=== PATIENT | female | born 1985 | race African-American/Black ===

== ENCOUNTER 2017-10-05 02:50 | Inpatient (IN) | payer SELFPAY ==
[2017-10-05] VITALS (12 sets, daily range): BP systolic 102–139; BP diastolic 56–85; PULSE 65–95; RESP 14–20; TEMP 97.2–98; O2SAT 92–100
[~2017-10-05] VITALS: Ht 170.2 cm; Wt 55.0 kg
[2017-10-05] MEDS ORDERED: SODIUM CHLORIDE 0.9% FLUSH 10 ML FLUSH IVF PRN (03:00)
[2017-10-05] MEDS ORDERED: SODIUM CHLOR 0.9% 1000 ML INJ 1,000 ML IV ONE (03:00)
[2017-10-05] MEDS ORDERED: IBUP200C PO (03:03)
[2017-10-05] MEDS ORDERED: DILA100C PO (03:16)
[2017-10-05] MEDS ORDERED: HYDR-3111 PO (03:16)
[2017-10-05 03:28] LABS: HEMATOCRIT 23.8 % (35.0-46.0); HEMOGLOBIN 7.1 GM/DL (11.6-15.3); MEAN CELL VOLUME 60.5 FL (80.0-100.0); MEAN PLATELET VOLUME 8.5 FL (7.0-11.0); PLATELET COUNT 284 TH/MM3 (150-450); RED BLOOD COUNT 3.93 MIL/MM3 (4.00-5.30); RED CELL DISTRIBUTION WIDTH 24.9 % (11.6-17.2); RETIC # 51.1 MIL/L (20.0-150.0); RETIC % 1.3 % (0.4-3.0); WHITE BLOOD COUNT 4.8 TH/MM3 (4.0-11.0)
[2017-10-05 03:30] LABS: MEAN CORPUSCULAR HGB CONC 29.7 % (32.0-36.0)
[2017-10-05 03:40] LABS: ALBUMIN 4.1 GM/DL (3.4-5.0); ALT (GPT) 16 U/L (10-53); AST (GOT) 17 U/L (15-37); BICARBONATE 22.6 MEQ/L (21.0-32.0); BLOOD UREA NITROGEN 10 MG/DL (7-18); C-REACTIVE PROTEIN LESS THAN 0.29 MG/DL (0.00-0.30); CALCIUM 8.7 MG/DL (8.5-10.1); CHLORIDE 108 MEQ/L (98-107); CREATININE 0.72 MG/DL (0.50-1.00); GLOMERULAR FILTRATION RATE 93 ML/MIN (>89); GLUCOSE,RANDOM 82 MG/DL (74-106); SODIUM (NA) 140 MEQ/L (136-145)
--- NOTE | 2017-10-05 03:41 | PD ---
HPI Chief Complaint: Sickle Cell Time Seen by Provider: 02:59 Travel History International Travel<30 days: No Contact w/Intl Traveler<30days: No Traveled to known affect area: No History of Present Illness HPI The patient is a 32 year old female who presents to the [facility] emergency department with a history of sickle cell pain crisis that she reports began a week ago. She reports that she has pain in bilateral legs and her low back. The patient additionally also reports having a heavier than usual. This started yesterday. She reports that she has been passing large blood clots. She reports that she has a history of sickle cell anemia. She usually requires a blood transfusion when her hemoglobin is less than 7. She reports that she is visiting from [place]. She reports that she has had nausea with occasional vomiting during the symptoms over the last week. She reports that the emesis has consisted of stomach acid. On review of systems otherwise she denies having any recent fevers. She reports that she is currently improving after a cold. She describes the cold symptoms as having a fever, generalized malaise, dry cough. She denies having any neck pain, chest pain, shortness of breath, abdominal pain, diarrhea, urinary symptoms, or neurologic symptoms. LMP: Started yesterday PFSH Past Medical History Narrative Medical The patient's past medical history is significant for epilepsy, sickle cell anemia, dysmenorrhea. The patient reports that her last blood transfusion was 6 months ago. Past Surgical History Narrative Surgical The patient's past surgical history is significant for a cholecystectomy. Social History Alcohol Use: No Tobacco Use: Yes (One half pack per day) Substance Use: Yes (On medical marijuana) Allergies-Medications (Allergen,Severity, Reaction): Coded Allergies: banana (Verified Allergy, Intermediate, 10/05/17) Reported Meds & Prescriptions Reported Meds & Active Scripts Active Reported Dilantin (Phenytoin Extended) 100 Mg Cap 100 Mg PO TID Vicodin (Hydrocodone-Acetaminophen) 5-300 Mg Tab 1 Tab PO Q6H PRN Ibuprofen 200 Mg Cap 1,000 Mg PO Q6H Review of Systems Except as stated in HPI: all other systems reviewed are Neg General / Constitutional: Positive: Fever (A week ago) Eyes: No: Visual changes HENT: Positive: Rhinorrhea, Congestion, No: Headaches Cardiovascular: No: Chest Pain or Discomfort Respiratory: Positive: Cough (Improving since last week), No: Shortness of Breath Gastrointestinal: Positive: Nausea, No: Vomiting, Diarrhea, Abdominal Pain Genitourinary: No: Dysuria Musculoskeletal: Positive: Myalgias, Arthralgias, Pain, No: Limited ROM, Edema Skin: No Rash Neurologic: No: Weakness Psychiatric: No: Depression Endocrine: No: Polydipsia Hematologic/Lymphatic: No: Easy Bruising Physical Exam Narrative General: The patient is a well-developed well-nourished female, uncomfortable appearing on initial arrival, reporting severe pain in bilateral lower extremities and low back. Head and Neck exam: Head is normocephalic atraumatic. Eyes: EOMI, pupils are equal round and reactive to light. Nose: Midline septum with pink mucous membranes Mouth: Dentition unremarkable. Moist mucus membranes. Posterior oropharynx is not erythematous. No tonsillar hypertrophy. Uvula midline. Airway patent. Neck: No palpable lymphadenopathy. No nuchal rigidity. No thyromegaly. Cardiovascular: Regular rate and rhythm without murmurs, gallops, or rubs. No pulse deficit to the extremities on simultaneous auscultation and palpation of her radial artery. Lungs: Clear to auscultation bilaterally. No wheezes, rhonchi, or rales. Abdomen: Soft, without tenderness to palpation in all 4 quadrants of the abdomen. No guarding, rebound, or rigidity. Normal bowel sounds are audible. No tenderness on palpation of McBurney's point. Negative Donald sign. Extremities: No clubbing, cyanosis, or edema. 2+ pulses in all 4 extremities. The patient reports having bilateral calf tenderness on palpation. Negative Homans sign. No joint erythema or edema. No joint crepitus and full range of motion of all of her joints. Back: No spinous process tenderness to palpation. No costovertebral angle tenderness to palpation. The patient has no step-off or crepitus. No erythema or ecchymosis. The patient reports having paraspinal muscle tenderness on palpation along the lumbar spine bilaterally. Neurologic Exam: Grossly nonfocal. Skin Exam: No rash noted. Intact skin that is warm and dry. Data Data Last Documented VS Vital Signs Date Time Temp Pulse Resp B/P (MAP) Pulse Ox O2 Delivery O2 Flow Rate FiO2 10/05/17 06:17 80 14 108/62 (77) 97 Room Air 10/05/17 02:53 97.7 Orders Orders C-Reactive Protein (Crp) (10/05/17 03:00) Complete Blood Count With Diff (10/05/17 03:00) Comprehensive Metabolic Panel (10/05/17 03:00) Retic Count (10/05/17 03:00) Urinalysis - C+S If Indicated (10/05/17 03:00) Ecg Monitoring (10/05/17 03:00) Iv Access Insert/Monitor (10/05/17 03:00) Oximetry (10/05/17 03:00) Oxygen Administration (10/05/17 03:00) Sodium Chloride 0.9% Flush (Ns Flush) (10/05/17 03:00) Sodium Chlor 0.9% 1000 Ml Inj (Ns 1000 M (10/05/17 03:00) Morphine Inj (Morphine Inj) (10/05/17 03:45) Prochlorperazine Inj (Compazine Inj) (10/05/17 03:45) Morphine Inj (Morphine Inj) (10/05/17 05:15) Ondansetron Inj (Zofran Inj) (10/05/17 05:15) Hydromorphone Pf Inj (Dilaudid Pf Inj) (10/05/17 05:15) Diphenhydramine Inj (Benadryl Inj) (10/05/17 05:15) Ldh Serum (10/05/17 05:43) Westergren Sedimentation Rate (10/05/17 05:45) Sodium Chlorid 0.9% 500 Ml Inj (Ns 500 M (10/05/17 06:15) Hydromorphone Pf Inj (Dilaudid Pf Inj) (10/05/17 06:45) Metoclopramide Inj (Reglan Inj) (10/05/17 06:45) Admit Order (Ed Use Only) (10/05/17 06:44) Labs Laboratory Tests Test 10/05/17 03:10 10/05/17 04:10 White Blood Count 4.8 TH/MM3 Red Blood Count 3.93 MIL/MM3 Hemoglobin 7.1 GM/DL Hematocrit 23.8 % Mean Corpuscular Volume 60.5 FL Mean Corpuscular Hemoglobin 18.0 PG Mean Corpuscular Hemoglobin Concent 29.7 % Red Cell Distribution Width 24.9 % Platelet Count 284 TH/MM3 Mean Platelet Volume 8.5 FL CBC Comment AUTO DIFF Differential Total Cells Counted 100 Neutrophils % (Manual) 48 % Lymphocytes % 42 % Monocytes % 3 % Eosinophils % 5 % Basophils % 2 % Neutrophils # (Manual) 2.3 TH/MM3 Differential Comment FINAL DIFF MANUAL Platelet Estimate NORMAL Platelet Morphology Comment NORMAL Ovalocytes 1+ Acanthocytes 1+ Keratocytes OCC Erythrocyte Sedimentation Rate 34 mm/hr Reticulocyte Count 1.3 % Absolute Reticulocyte Count 51.1 MIL/L Blood Urea Nitrogen 10 MG/DL Creatinine 0.72 MG/DL Random Glucose 82 MG/DL Total Protein 8.1 GM/DL Albumin 4.1 GM/DL Calcium Level 8.7 MG/DL Alkaline Phosphatase 46 U/L Aspartate Amino Transf (AST/SGOT) 17 U/L Alanine Aminotransferase (ALT/SGPT) 16 U/L Total Bilirubin 0.4 MG/DL Sodium Level 140 MEQ/L Potassium Level 3.9 MEQ/L Chloride Level 108 MEQ/L Carbon Dioxide Level 22.6 MEQ/L Anion Gap 9 MEQ/L Estimat Glomerular Filtration Rate 93 ML/MIN Magnesium Level 2.0 MG/DL Lactate Dehydrogenase 207 U/L Total Creatine Kinase 97 U/L C-Reactive Protein LESS THAN 0.29 MG/DL Urine Color LIGHT-YELLOW Urine Turbidity CLEAR Urine pH 6.5 Urine Specific [place] 1.004 Urine Protein NEG mg/dL Urine Glucose (UA) NEG mg/dL Urine Ketones NEG mg/dL Urine Occult Blood MOD Urine Nitrite NEG Urine Bilirubin NEG Urine Urobilinogen LESS THAN 2.0 MG/DL Urine Leukocyte Esterase NEG Urine RBC 11 /hpf Urine WBC 1 /hpf Urine Squamous Epithelial Cells 2 /hpf Urine Bacteria RARE /hpf Urine Hyaline Casts 2 /lpf Urine Mucus FEW /lpf Microscopic Urinalysis Comment CULT NOT INDICATED MDM Medical Decision Making Medical Screen Exam Complete: Yes Emergency Medical Condition: Yes Medical Record Reviewed: Yes Differential Diagnosis Sickle cell pain crisis, versus DVT, versus septic arthritis, versus viral syndrome with arthralgias, versus other infectious process Narrative Course During the course of the patient's emergency department visit, the patient's history, examination, and differential diagnosis were reviewed with the patient. The patient was placed on a cardiac cath technologist with oximetry and frequent blood pressure monitoring. The patient had IV access obtained and blood work sent for analysis. The patient was initially provided morphine for pain, Zofran for nausea, normal saline 1 L IV fluid bolus. The patient reported continued pain and was given hydromorphone 1 mg IV, Benadryl 25 mg IV. The patient's laboratory studies were reviewed and remarkable for . I received a call from the lab regarding a suspicious abnormality peripheral smear of her CBC. Inside the patient's red blood cells are appears to be a parasite infection suspicious for Babesiosis. The pathologist will be reviewing it in the morning. Interestingly, I spoke to the patient regarding this finding. She reports that her sister was diagnosed with babesiosis. The patient denies being aware of any recent tick bites, however she has seen ticks on and near her recently when she was in [place]. The patient on reexamination reports continued pain after hydromorphone and Benadryl. An additional dose of hydromorphone 0.5 mg IV was administered along with Reglan 5 mg IV for nausea. The patient reports that the pain continues to be a 7-8 out of 10 in severity. She reports having a burning sensation on the left calf. An ultrasound will be added to her workup to evaluate for possible underlying DVT. Radiology studies were reviewed and remarkable for ultrasound is negative for DVT. The patient's results were discussed with the patient, including the plan of care. I explained that further testing and/ or monitoring is indicated based on the patient's history, examination, and/ or laboratory findings. Therefore, I recommended admission for additional evaluation. The patient expressed understanding and was agreeable with this plan. The patient was admitted to the hospital in stable condition and sent to a bed under the care of the [facility] service. Physician Communication Physician Communication The patient's case including history, pertinent physical examination findings, and laboratory studies were discussed with Dr. Scott who did agree to admit the patient for further evaluation and treatment at this time to the [facility] service. Diagnosis Primary Impression: Sickle cell pain crisis Additional Impressions: Intractable pain Anemia Qualified Codes: D64.9 - Anemia, unspecified Admitting Information Admitting Physician Requests: Juanita Rowe MD October 05, 2017 03:41
[2017-10-05 03:42] LABS: ALKALINE PHOSPHATASE 46 U/L (45-117); TOTAL BILIRUBIN ADULT 0.4 MG/DL (0.2-1.0); TOTAL PROTEIN 8.1 GM/DL (6.4-8.2)
[2017-10-05] MEDS ORDERED: MORPHINE SULFATE 8 MG/ML INJ IV PUSH ONE (03:45)
[2017-10-05] MEDS ORDERED: PROCHLORPERAZINE INJ 10 MG/2 ML VIAL IV PUSH ONE (03:45)
[2017-10-05 04:31] LABS: BACTERIA, URINE RARE /hpf; BILIRUBIN, URINE NEG (NEG); BLOOD, URINE MOD (NEG); GLUCOSE,URINE NEG (NEG); HYALINE CAST, URINE 2 /lpf (RARE); KETONE, URINE NEG (NEG); MUCUS URINE FEW /lpf (OCC); NITRITE,URINE NEG (NEG); PH, URINE 6.5 (5.0-8.5); SQUAMOUS EPITHELIAL CELL URINE 2 /hpf (0-5); URINE COLOR LIGHT-YELLOW (YELLW/STRAW); URINE LEUKOCYTE ESTERASE NEG (NEG)
[2017-10-05] MEDS ORDERED: HYDROmorphone HCL PF 2 MG/ML VIAL IV PUSH ONE (05:15)
[2017-10-05] MEDS ORDERED: diphenhydrAMINE HCL 50 MG/ML VIAL IV PUSH ONE (05:15)
[2017-10-05] MEDS ORDERED: MORPHINE SULFATE 4 MG/ML INJ IV PUSH ONE (05:15)
[2017-10-05] MEDS ORDERED: ONDANSETRON HCL 4 MG/2 ML VIAL IV PUSH ONE (05:15)
[2017-10-05 05:40] LABS: BASOPHILS 2 % (0-2); LYMPHOCYTES 42 % (9-44); MONOCYTES 3 % (0-8); NEUTROPHIL # MANUAL DIFF 2.3 TH/MM3 (1.8-7.7); POLYS (SEG NEUTROPHILS) 48 % (16-70)
[2017-10-05 05:41] LABS: ACANTHOCYTES 1+ (NORMAL); KERATOCYTES OCC (NORMAL)
[2017-10-05 05:42] LABS: OVALOCYTES 1+ (NORMAL)
[2017-10-05] MEDS ORDERED: SODIUM CHLORID 0.9% 500 ML INJ 500 ML IV ONE (06:15)
[2017-10-05] MEDS ORDERED: SENNOSIDES 8.6 MG TAB PO PRN (06:45)
[2017-10-05] MEDS ORDERED: BISACODYL 10 MG SUPP RECTAL PRN (06:45)
[2017-10-05] MEDS ORDERED: MAGNESIUM HYDROXIDE SUSP 30 ML CUP PO PRN (06:45)
[2017-10-05] MEDS ORDERED: LACTULOSE SYRUP 20 GM/30 ML CUP PO PRN (06:45)
[2017-10-05] MEDS ORDERED: METOCLOPRAMIDE HCL 10 MG/2 ML VIAL IV PUSH ONE (06:45)
[2017-10-05] MEDS ORDERED: SODIUM CHLORIDE 0.9% FLUSH 10 ML FLUSH IV FLUSH PRN (06:45)
[2017-10-05] MEDS ORDERED: HYDROmorphone HCL PF 1 MG/ML VIAL IV PUSH ONE (06:45)
[2017-10-05] MEDS ORDERED: HYDROmorphone HCL PF 2 MG/ML VIAL IV PUSH PRN ×2 (06:45→13:15)
[2017-10-05] MEDS: SODIUM CHLOR 0.9% 1000 ML INJ 1,000 ML IV SCH ×2 (07:26→13:22)
[2017-10-05] MEDS: SODIUM CHLORIDE 0.9% FLUSH 10 ML FLUSH IV FLUSH SCH ×2 (07:27→20:13)
[2017-10-05] MEDS: HYDROmorphone HCL PF 0.5 MG/0.5 ML SYRINGE IV PUSH PRN ×2 (07:27→12:08)
[2017-10-05] MEDS: DOCUSATE SODIUM 50 MG/SENNA 8.6 MG TAB PO SCH ×2 (08:53→20:12)
--- NOTE | 2017-10-05 09:54 | RADRPT ---
EXAM DATE: 10/05/2017 9:50 AM EDT AGE/SEX: 32 years / Female INDICATIONS: Left leg pain. CLINICAL DATA: This is the patient's initial encounter. Patient reports that signs and symptoms have been present for 1 week and indicates a pain score of 6/10. MEDICAL/SURGICAL HISTORY: . Seizures. Epilepsy. Sickle cell. None. COMPARISON: No prior [place] exams available for comparison. TECHNIQUE: Venous ultrasound of both lower extremities was performed from the inguinal ligament to t he proximal calf. Real-time, color Doppler and spectral tracing, compression and augmentation techni ques were used. FINDINGS: There is normal compressibility of the deep venous system from the inguinal region to the proximal ca lf. No echogenic clot is seen in the lumen of the common femoral, femoral, popliteal, and posterior tibial veins. There is a normal response of the venous system to proximal and distal augmentation an d respiration. CONCLUSION: 1. The study is negative for lower extremity deep venous thrombosis. Electronically signed by: Arben Fox MD 10/05/2017 9:53 AM EDT
[2017-10-05] MEDS: PHENYTOIN SODIUM 100 MG CAP PO SCH ×2 (12:05→18:09)
--- NOTE | 2017-10-05 13:29 | HHI.HP ---
[facility] Service [place] [facility]ists Primary Care Physician Unknown Admission Diagnosis Intractable pain, history of sickle cell anemia Diagnoses: Chief Complaint: Leg pain Travel History International Travel<30 Days: No Contact w/Intl Traveler <30 Da: No Traveled to Known Affected Are: No History of Present Illness 32-year-old black female being admitted for intractable leg pain likely secondary to sickle cell crisis. Patient was in her usual state of health until about 3 4 days ago when she was just finishing getting over a cold on her chronic pain in her legs worsened in intensity. Says that at baseline her leg pain is usually about a 5 on a good day but this progressed to a 7 to an 8. Pain would worsen with bearing weight and subsequently she had difficulty ambulating and had a few falls within the past few days, thus prompting her to come to the emergency department. Reports being nauseated and having some dry heaving but no vomiting, denies any diarrhea. Reports subjective fevers. She does also report noticing some bruising which is more diffuse than usual for her pain crises. In the emergency department she had a lower extremity ultrasound done which was negative for a DVT. Blood work was unremarkable except for hemoglobin of 7.1. termite technician and reviewed the peripheral smear had contacted the emergency room physician and advised him of possible findings suggestive of babesiosis, specimen being submitted to pathology for review, pathologists are not in-house today. Patient says that at baseline she takes anywhere from 6-8 200 mg pills of ibuprofen and 1 shot about every 3 hours for her chronic pain. She says she has tried Tylenol but usually the second or third dose causes her to vomit so she does not take it as much. She does not like to take her previously prescribed Vicodin by her dianetic counselor from [place] because she says it puts her to sleep and she cannot afford to fall asleep being around her 3 kids. She says she was last hospitalized only about 1 time within the last 12 months. Says she has been hospitalized frequently as a child for sickle cell crises. Says that her hemoglobin levels usually run between 7 and 8, says she usually gets transfused when they hit the 6's. Social history entails that the patient recently moved from [place] to [place] and currently they are simply visiting on vacation here in [place]. Review of Systems Except as stated in HPI: all other systems reviewed are Neg Past Family Social History Past Medical History Sickle cell disease Epilepsy Allergies: Coded Allergies: banana (Verified Allergy, Intermediate, 10/05/17) Family History Multiple female members of the family with cervical cancer Social History Smokes 5-6 cigarettes a day, denies drinking, reports seldom marijuana use for pain Physical Exam Vital Signs Vital Signs Date Time Temp Pulse Resp B/P (MAP) Pulse Ox O2 Delivery O2 Flow Rate FiO2 10/05/17 09:42 97.9 83 16 120/72 (88) 100 10/05/17 08:52 97.8 72 16 111/69 (83) 99 Room Air 10/05/17 07:30 17 10/05/17 07:30 17 10/05/17 07:28 17 100 Room Air 10/05/17 07:28 76 17 100 Room Air 10/05/17 07:28 97.9 76 16 110/67 (81) 100 Room Air 10/05/17 07:28 100 Room Air 10/05/17 06:17 80 14 108/62 (77) 97 Room Air 10/05/17 06:03 78 15 102/56 (71) 99 Room Air 10/05/17 04:30 90 20 139/61 (87) 100 Room Air 10/05/17 03:15 99 Room Air 10/05/17 03:00 86 17 127/85 (99) 99 Room Air 10/05/17 03:00 76 99 Room Air 10/05/17 02:53 97.7 88 20 125/74 (91) 100 Physical Exam VS: afebrile GENERAL: Well-nourished young black female SKIN: Warm and dry. There is a faint scattered bruising throughout lower extremities. EYES: No scleral icterus. No injection or drainage. ENT: No nasal bleeding or discharge. Mucous membranes pink and moist. CARDIOVASCULAR: Regular rate and rhythm. no murmurs RESPIRATORY: No accessory muscle use. Clear to auscultation. Breath sounds equal bilaterally. GASTROINTESTINAL: Abdomen soft, non-tender, nondistended. Extremities: No clubbing, cyanosis, or edema. No obvious deformities. MUSCULOSKELETAL: adequate muscle bulk and tone for age and habitus; has mild to moderate tenderness to palpation over her posterior calves and thighs. NEUROLOGICAL: Awake and alert. No obvious cranial nerve deficits. No facial droop nor slurred speech noted. PSYCHIATRIC: Appropriate mood and affect; insight and judgment normal. Laboratory Laboratory Tests Test 10/05/17 03:10 10/05/17 04:10 White Blood Count 4.8 Red Blood Count 3.93 Hemoglobin 7.1 Hematocrit 23.8 Mean Corpuscular Volume 60.5 Mean Corpuscular Hemoglobin 18.0 Mean Corpuscular Hemoglobin Concent 29.7 Red Cell Distribution Width 24.9 Platelet Count 284 Mean Platelet Volume 8.5 CBC Comment AUTO DIFF Differential Total Cells Counted 100 Neutrophils % (Manual) 48 Lymphocytes % 42 Monocytes % 3 Eosinophils % 5 Basophils % 2 Neutrophils # (Manual) 2.3 Differential Comment FINAL DIFF MANUAL Platelet Estimate NORMAL Platelet Morphology Comment NORMAL Ovalocytes 1+ Acanthocytes 1+ Keratocytes OCC Erythrocyte Sedimentation Rate 34 Reticulocyte Count 1.3 Absolute Reticulocyte Count 51.1 Blood Urea Nitrogen 10 Creatinine 0.72 Random Glucose 82 Total Protein 8.1 Albumin 4.1 Calcium Level 8.7 Alkaline Phosphatase 46 Aspartate Amino Transf (AST/SGOT) 17 Alanine Aminotransferase (ALT/SGPT) 16 Total Bilirubin 0.4 Sodium Level 140 Potassium Level 3.9 Chloride Level 108 Carbon Dioxide Level 22.6 Anion Gap 9 Estimat Glomerular Filtration Rate 93 Lactate Dehydrogenase 207 C-Reactive Protein LESS THAN 0.29 Urine Color LIGHT-YELLOW Urine Turbidity CLEAR Urine pH 6.5 Urine Specific [place] 1.004 Urine Protein NEG Urine Glucose (UA) NEG Urine Ketones NEG Urine Occult Blood MOD Urine Nitrite NEG Urine Bilirubin NEG Urine Urobilinogen LESS THAN 2.0 Urine Leukocyte Esterase NEG Urine RBC 11 Urine WBC 1 Urine Squamous Epithelial Cells 2 Urine Bacteria RARE Urine Hyaline Casts 2 Urine Mucus FEW Microscopic Urinalysis Comment CULT NOT INDICATED Result Diagram: 10/05/17 03110/05/17 0310 Imaging Last Impressions Lower Extremity Ultrasound 10/05/17 0809 Signed Impressions: CONCLUSION: 1. The study is negative for lower extremity deep venous thrombosis. Caprini VTE Risk Assessment Caprini VTE Risk Assessment: No/Low Risk (score <= 1) Caprini Risk Assessment Model Point Value = 1 Point Value = 2 Point Value = 3 Point Value = 5 Age 41-60 Minor surgery BMI > 25 kg/m2 Swollen legs Varicose veins or History of unexplained or recurrent spontaneous Oral contraceptives or hormone replacement Sepsis (< 1 month) Serious lung disease, including pneumonia (< 1 month) Abnormal pulmonary function Acute myocardial infarction Congestive heart failure (< 1 month) History of inflammatory bowel disease Medical patient at bed rest Age 61-74 Arthroscopic surgery Major open surgery (> 45 min) Laparoscopic surgery (> 45 min) Malignancy Confined to bed (> 72 hours) Immobilizing plaster cast Central venous access Age >= 75 History of VTE Family history of VTE Factor V Leiden Prothrombin [id number] Lupus anticoagulant Anticardiolipin antibodies Elevated serum homocysteine Heparin-induced thrombocytopenia Other congenital or acquired thrombophilia Stroke (< 1 month) Elective arthroplasty Hip, pelvis, or leg fracture Acute spinal cord injury (< 1 month) Prophylaxis Regimen Total Risk Factor Score Risk Level Prophylaxis Regimen 0-1 Low Early ambulation 2 Moderate Order ONE of the following: *Sequential Compression Device (SCD) *Heparin 5000 units SQ BID 3-4 Higher Order ONE of the following medications: *Heparin 5000 units SQ TID *Enoxaparin/Lovenox 40 mg SQ daily (WT < 150 kg, CrCl > 30 mL/min) *Enoxaparin/Lovenox 30 mg SQ daily (WT < 150 kg, CrCl > 10-29 mL/min) *Enoxaparin/Lovenox 30 mg SQ BID (WT < 150 kg, CrCl > 30 mL/min) AND/OR *Sequential Compression Device (SCD) 5 or more Highest Order ONE of the following medications: *Heparin 5000 units SQ TID (Preferred with Epidurals) *Enoxaparin/Lovenox 40 mg SQ daily (WT < 150 kg, CrCl > 30 mL/min) *Enoxaparin/Lovenox 30 mg SQ daily (WT < 150 kg, CrCl > 10-29 mL/min) *Enoxaparin/Lovenox 30 mg SQ BID (WT < 150 kg, CrCl > 30 mL/min) AND *Sequential Compression Device (SCD) Assessment and Plan Assessment and Plan 32-year-old black female admitted for sickle cell pain crisis Lower extremity pains likely sickle cell crisis from acute distress secondary to recent URI vs possible ?? babesiosis -We will minimize IV Dilaudid pushes and hopefully maximize a trial of tramadol since the patient says she has not tried this medicine in the past and it does not have the same somnolent affect as Lortab/Vicodin and is not as problematic in terms of side effects as ibuprofen -If pain is refractory will consider transfusion -Patient likely had fevers our reflective of her recently resolved URI but we will monitor for fevers here off of any antibiotics -Checking CK and magnesium levels to rule out any other obvious causes of leg pains possible babesiosis -hx is consistent with the patient's symptoms of recurring fevers up to 104 w/ myalgias at home but none here in hospital. D/w Dr. Sood from [facility] who will help verify if this is truly babesiosis in AM on smear, meanwhile type-in special orders for serology and pcr have been placed in case. Pt clinically stable at this time thus will hold off on abx. If fevers occur in-house, obtain BC's and consult ID. nausea - NSAID overuse vs pain crisis vs possible ? babesiosis - cmp wnl - zofran odt prn nausea early ambulation Disposition entails patient being able to be discharged home if she ambulates and weight bears without much difficulty off of IV pain medication. Physician Certification 2 Midnight Certification Type: Admission for Inpatient Services Order for Inpatient Services The services are ordered in accordance with Medicare regulations or non- Medicare payer requirements, as applicable. In the case of services not specified as inpatient-only, they are appropriately provided as inpatient services in accordance with the 2-midnight benchmark. Estimated LOS (days): 2 2 days is the estimated time the patient will need to remain in the hospital, assuming treatment plan goals are met and no additional complications. Post-Hospital Plan: Home Aleks Ibrahim MD October 05, 2017 13:29
[2017-10-05] MEDS ORDERED: traMADol HCL 50 MG TAB PO PRN ×2 (14:00)
== END 2017-10-05 21:20 | disposition left against medical advice (07) | DRG 812 ==
LOC: NEPE 02:50 → OBSVTOIN 06:46 → NEDA 06:46 → UNDOADMOB 06:46 → INTOOBSV 06:46 → N06B 10:03
PROVIDERS: ADMIT Hospitalist; ATTEND Hospitalist
DX: D57.00 Hb-SS disease with crisis, unspecified (principal); F17.210 Nicotine dependence, cigarettes, uncomplicated; G40.909 Epilepsy, unspecified, not intractable, without status epilepticus; N94.6 Dysmenorrhea, unspecified; F12.90 Cannabis use, unspecified, uncomplicated
CPT/HCPCS: 80053; 81001; 82550; 83615; 83735; 85007; 85027; 85044; 85652; 86140; 93971; J0780; J1170; J1200; J2765; J7030; J7040

== ENCOUNTER 2017-10-07 22:05 | Inpatient (IN) | payer MEDICAID ==
[~2017-10-07] VITALS: Ht 175.3 cm; Wt 74.0 kg
[~2017-10-07 22:05] MED LIST: DILA100C PO; HYDR-3111 PO; IBUP200C PO
[2017-10-07 22:09] VITALS: BP 117/84; PULSE 90; RESP 16; TEMP 98.2; O2SAT 100
[2017-10-07] MEDS ORDERED: SODIUM CHLORIDE 0.9% FLUSH 10 ML FLUSH IVF PRN (22:15)
[2017-10-07 22:17] VITALS: O2SAT 100
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
[2017-10-07 22:43] LABS: MEAN CELL VOLUME 60.3 FL (80.0-100.0); MEAN CORPUSCULAR HEMOGLOBIN 17.8 PG (27.0-34.0); MEAN PLATELET VOLUME 8.4 FL (7.0-11.0); PLATELET COUNT 216 TH/MM3 (150-450); RED BLOOD COUNT 3.21 MIL/MM3 (4.00-5.30); RED CELL DISTRIBUTION WIDTH 23.4 % (11.6-17.2); WHITE BLOOD COUNT 3.9 TH/MM3 (4.0-11.0)
[2017-10-07 22:44] LABS: MEAN CORPUSCULAR HGB CONC 29.6 % (32.0-36.0)
[2017-10-07 22:46] LABS: HEMATOCRIT 19.4 % (35.0-46.0); HEMOGLOBIN 5.7 GM/DL (11.6-15.3)
[2017-10-07 22:47] LABS: BICARBONATE 22.6 MEQ/L (21.0-32.0); CALCIUM 8.4 MG/DL (8.5-10.1); CREATININE 0.69 MG/DL (0.50-1.00)
[2017-10-07 22:48] LABS: PHENYTOIN (DILANTIN) 0.8 MCG/ML (10.0-20.0)
[2017-10-07 22:58] LABS: RETIC # 37.9 MIL/L (20.0-150.0); RETIC % 1.2 % (0.4-3.0)
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
[2017-10-07] MEDS ORDERED: PHENYTOIN INJ 1,000 MG in SODIUM CHLORIDE 0.9% INJ 100 ML IV ONE (23:00)
[2017-10-07] MEDS ORDERED: POTASSIUM CHLORIDE 20 MEQ CONTROLLED RELEASE TAB PO ONE (23:00)
[2017-10-07] MEDS ORDERED: ONDANSETRON ODT 4 MG TAB PO ONE (23:00)
[2017-10-07] MEDS ORDERED: MORPHINE SULFATE 4 MG/ML INJ IV PUSH ONE (23:00)
[2017-10-07 23:15] LABS: BASOPHILS 2 % (0-2); LYMPHOCYTES 45 % (9-44); POLYS (SEG NEUTROPHILS) 50 % (16-70)
[2017-10-07 23:21] LABS: OVALOCYTES 1+ (NORMAL); TEARDROP RBCS 1+ (NORMAL)
[2017-10-08] VITALS (13 sets, daily range): BP systolic 98–132; BP diastolic 53–82; PULSE 52–83; RESP 14–18; TEMP 97.1–98.7; O2SAT 97–100
[2017-10-08] MEDS ORDERED: SODIUM CHLORIDE 0.9% FLUSH 10 ML FLUSH IV FLUSH PRN (01:15)
[2017-10-08] MEDS: SODIUM CHLOR 0.9% 1000 ML INJ 1,000 ML IV SCH ×3 (01:33→20:27)
[2017-10-08] MEDS ORDERED: diphenhydrAMINE HCL 50 MG/ML VIAL IV PUSH ONE (02:00)
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
[2017-10-08] MEDS: HYDROmorphone HCL PF 0.5 MG/0.5 ML SYRINGE IV PRN ×5 (03:34→20:27)
--- NOTE | 2017-10-08 04:07 | RADRPT ---
EXAM DATE: 10/08/2017 3:41 AM EDT AGE/SEX: 32 years / Female INDICATIONS: Nontraumatic nonspecific left leg pain for two weeks. CLINICAL DATA: This is the patient's initial encounter. Patient reports that signs and symptoms have been present for 2 weeks and indicates a pain score of 7/10. MEDICAL/SURGICAL HISTORY: Anemia. Sickle Cell disease. None. COMPARISON: No prior exams available for comparison. FINDINGS: No definite fractures, or dislocations are identified. No definite lytic or sclerotic les ion is seen. CONCLUSION: Unremarkable study. Electronically signed by: Lucian Trimble MD 10/08/2017 4:06 AM EDT
[2017-10-08] MEDS ORDERED: ONDANSETRON ODT 4 MG TAB PO PRN (07:15)
[2017-10-08] MEDS ORDERED: diphenhydrAMINE HCL 25 MG CAP PO PRN (08:00)
[2017-10-08] MEDS: SODIUM CHLORIDE 0.9% FLUSH 10 ML FLUSH IV FLUSH SCH ×2 (09:00→20:27)
[2017-10-08] MEDS: PHENYTOIN SODIUM 100 MG CAP PO SCH ×3 (10:09→19:04)
--- NOTE | 2017-10-08 16:07 | HHI.PR ---
Addendum to Inpatient Note Additional Information d/w the nurse and pt she still have significant left calf pain with very significant [place] sign +, will repeat US we will repeat HH in am after she got the transfusion today Negro Lay MD October 08, 2017 16:07
--- NOTE | 2017-10-08 20:06 | RADRPT ---
EXAM DATE: 10/08/2017 8:04 PM EDT AGE/SEX: 32 years / Female INDICATIONS: Left leg pain. CLINICAL DATA: This is the patient's initial encounter. Patient reports that signs and symptoms have been present for 1 day and indicates a pain score of 3/10. MEDICAL/SURGICAL HISTORY: Gastroesophageal reflux disease. Aneurysm, abdominal. Sickle Cell d isease. Asthma. Epilepsy. Anxiety. Arthritis. Cholecystectomy. Blood transfusions. COMPARISON: [facility] [place], US LEG LEFT VENOUS DOPPLER, 10/05/2017. . No external comparison. TECHNIQUE: Venous ultrasound of both lower extremities was performed from the inguinal ligament to t he proximal calf. Real-time, color Doppler and spectral tracing, compression and augmentation techni ques were used. FINDINGS: There is normal compressibility of the deep venous system from the inguinal region to the proximal ca lf. No echogenic clot is seen in the lumen of the common femoral, femoral, popliteal, and posterior tibial veins. There is a normal response of the venous system to proximal and distal augmentation an d respiration. CONCLUSION: There is no left lower extremity DVT. Electronically signed by: Jose Luis Bansal MD 10/08/2017 8:05 PM EDT
[2017-10-09] VITALS: PULSE 65
[2017-10-09 00:14] VITALS: BP 99/68; PULSE 66; RESP 18; TEMP 97.3; O2SAT 98
[2017-10-09] MEDS: HYDROmorphone HCL PF 0.5 MG/0.5 ML SYRINGE IV PRN ×2 (02:26→08:06)
[2017-10-09] MEDS: SODIUM CHLOR 0.9% 1000 ML INJ 1,000 ML IV SCH (03:33)
[2017-10-09 04:00] VITALS: BP 104/74; PULSE 55; PULSE 64; RESP 20; TEMP 97.1; TEMP 97.4; O2SAT 97
[2017-10-09 07:47] LABS: HEMATOCRIT 25.8 % (35.0-46.0); MEAN CELL VOLUME 65.7 FL (80.0-100.0); MEAN CORPUSCULAR HEMOGLOBIN 20.3 PG (27.0-34.0); MEAN CORPUSCULAR HGB CONC 30.9 % (32.0-36.0); MEAN PLATELET VOLUME 8.5 FL (7.0-11.0); PLATELET COUNT 137 TH/MM3 (150-450); RED BLOOD COUNT 3.93 MIL/MM3 (4.00-5.30); RED CELL DISTRIBUTION WIDTH 28.7 % (11.6-17.2); WHITE BLOOD COUNT 4.1 TH/MM3 (4.0-11.0)
[2017-10-09 07:59] LABS: BICARBONATE 23.8 MEQ/L (21.0-32.0); CREATININE 0.58 MG/DL (0.50-1.00)
[2017-10-09 08:00] VITALS: PULSE 61
[2017-10-09] MEDS: PHENYTOIN SODIUM 100 MG CAP PO SCH (08:06)
[2017-10-09] MEDS: SODIUM CHLORIDE 0.9% FLUSH 10 ML FLUSH IV FLUSH SCH (08:07)
[2017-10-09 08:15] VITALS: BP 114/72; PULSE 72; RESP 18; TEMP 97.5; O2SAT 98
[2017-10-09 10:19] LABS: ACANTHOCYTES OCC (NORMAL); BANDS 1 % (0-6); LYMPHOCYTES 43 % (9-44); MONOCYTES 6 % (0-8); NEUTROPHIL # MANUAL DIFF 1.9 TH/MM3 (1.8-7.7); OVALOCYTES 1+ (NORMAL); POLYS (SEG NEUTROPHILS) 45 % (16-70); TEARDROP RBCS 1+ (NORMAL)
[2017-10-09] MEDS ORDERED: DILA100C PO (10:53)
[2017-10-09] MEDS ORDERED: NORC5TAB PO (10:53)
--- NOTE | 2017-10-09 10:59 | HHI.DS ---
Discharge Summary Admission Date October 07, 2017 at 23:04 Discharge Date: Oct 09, 2017 Admitting Diagnosis Sickle cell anemia, anemia, seizure disorder (1) Seizure ICD Code: R56.9 - Unspecified convulsions Status: Acute (2) Subtherapeutic serum dilantin level ICD Code: R78.89 - Finding of other specified substances, not normally found in blood Status: Acute (3) Sickle cell anemia ICD Code: D57.1 - Sickle-cell disease without crisis Status: Acute Procedures none Brief History - From Admission 32-year-old female with a past medical history significant for seizure disorder , sickle cell disease and asthma presents to the emergency department for the evaluation of leg pain and a seizure. The patient reports that she was going across the street to tell a family member that she needed to come to the emergency department for the evaluation of left lower extremity pain when she had a witnessed seizure. EMS was called and the patient lost bladder continence. She does not remember the event. The patient has been out of her Dilantin for approximately 2 days. She also reports 2 weeks of left lower extremity pain that is different than her normal sickle cell crisis pain. She also reports that she has to walk with a limp secondary to this pain. She was recently evaluated in the emergency department for similar complaint and ultrasound of the lower extremity was negative for DVT. Additionally, the patient complains of severe fatigue with shortness of breath that is worse with activity. She was found to be severely anemic on lab work. She denies any chest pain. No abdominal pain. No nausea/vomiting/diarrhea. No fever/chills. No lateralizing signs/symptoms. CBC/BMP: 10/09/17 0633 10/09/17 0633 Significant Findings Laboratory Tests Test 10/07/17 22:15 10/09/17 06:33 White Blood Count 3.9 TH/MM3 (4.0-11.0) Red Blood Count 3.21 MIL/MM3 (4.00-5.30) 3.93 MIL/MM3 (4.00-5.30) Hemoglobin 5.7 GM/DL (11.6-15.3) 8.0 GM/DL (11.6-15.3) Hematocrit 19.4 % (35.0-46.0) 25.8 % (35.0-46.0) Mean Corpuscular Volume 60.3 FL (80.0-100.0) 65.7 FL (80.0-100.0) Mean Corpuscular Hemoglobin 17.8 PG (27.0-34.0) 20.3 PG (27.0-34.0) Mean Corpuscular Hemoglobin Concent 29.6 % (32.0-36.0) 30.9 % (32.0-36.0) Red Cell Distribution Width 23.4 % (11.6-17.2) 28.7 % (11.6-17.2) Lymphocytes % 45 % (9-44) Tear Drop Cells 1+ (NORMAL) 1+ (NORMAL) Ovalocytes 1+ (NORMAL) 1+ (NORMAL) Blood Urea Nitrogen 6 MG/DL (7-18) 3 MG/DL (7-18) Random Glucose 71 MG/DL (74-106) 66 MG/DL (74-106) Calcium Level 8.4 MG/DL (8.5-10.1) 8.0 MG/DL (8.5-10.1) Potassium Level 3.1 MEQ/L (3.5-5.1) Phenytoin (Dilantin) Level 0.8 MCG/ML (10.0-20.0) Platelet Count 137 TH/MM3 (150-450) Eosinophils % 5 % (0-4) Platelet Estimate LOW (NORMAL) Acanthocytes OCC (NORMAL) Chloride Level 108 MEQ/L (98-107) Hospital Course This is a 32-year-old female with a history of sickle cell anemia and seizure disorder. She lost her medications 2 days prior to admission including seizure medicine. She had a witnessed seizure which resulted in an admission through the ER. At time of admission she had subtherapeutic Dilantin levels. She was also found to have severe anemia with a hemoglobin of 5.4. She was transfused and her hemoglobin is currently at 8.0. She states that she has to leave urgently due to her needing to be at work in [place] at 6 AM tomorrow. Primary reason for admission was seizure disorder and subtherapeutic Dilantin level, she is currently therapeutic on Dilantin and will go home on her therapeutic dose after being loaded on Dilantin in the ER. She has no source of bleeding by history and her presentation of anemia could be related to cycling in the presence of seizures. She tolerated the transfusion well but my recommendation is for her to stay here until she has her hemoglobin level rechecked this afternoon. She may leave before that but the more important thing is that she gets her seizure medicines. She understands and plans to follow-up with her primary care doctor on Thursday who is able to check an H&H level in the office. Pt Condition on Discharge: Good Discharge Disposition: Discharge Home Discharge Time: <= 30 minutes Discharge Instructions DIET: Follow Instructions for: As Tolerated, No Restrictions Activities you can perform: See Additionl Instruction Other Activity Instructions: No driving until cleared by Neurologist in [place] Dustin Rogers MD Oct 09, 2017 10:59
== END 2017-10-09 11:36 | disposition home or self-care (01) | DRG 100 ==
LOC: NEPE 22:05 → NEDA 23:04 → NEDH 10-08 04:18 → N04B 10-08 12:26
PROVIDERS: ADMIT Family Medicine; ATTEND Family Medicine
PROC: 30233N1 Transfusion of Nonautologous Red Blood Cells into Peripheral Vein, Percutaneous Approach (ICD-10-PCS; principal; 2017-10-08)
DX: G40.909 Epilepsy, unspecified, not intractable, without status epilepticus (principal); D57.00 Hb-SS disease with crisis, unspecified; E87.6 Hypokalemia
CPT/HCPCS: 36430; 73590; 80048; 80185; 85007; 85027; 85044; 86850; 86900; 86901; 86920; 93971; J1165; J1170; J1200; J2270; J7030; P9016